=== PATIENT | female | born 1930 | race Caucasian/White ===

== ENCOUNTER → 2021-02-02 | Outpatient (CLI) | payer MEDICARE, BC ==
[~2021-02-02] MED LIST: ALLEGRA ALLERG180 MG PO; CHLORTHALIDONE25 MG PO; CLARITIN10 MG PO; DITROPAN 5 MG TA5 MG PO; HYZAAR 100-12.1 EACH PO; LASIX40 MG PO; LATANOPROST 0.7.5 ML EYEBOTH; MAGNESIUM400 MG PO; METOPROLOL SUCC25 MG PO; METOPROLOL SUCC50 MG PO; METRONIDAZOLE GEL TOP; METRONIDAZOLE70 GM TP; MULTAQ400 MG PO; NITROSTAT 0.40.4 MG SL; NORCO 5-325 TA1 EACH PO; NORVASC10 MG PO; OSTEO BI-FLEX1 EAC1 PO; PEPCID40 MG PO; TOPROL XL100 MG PO; TOPROL XL200 MG PO; TOPROL XL25 MG PO; VALSARTAN320 MG PO; VOLTAREN100 GM TP; XARELTO15 MG PO; ZOFRAN4 MG PO
== END ==
LOC: LAB 10:20
DX: E78.00 Pure hypercholesterolemia, unspecified (principal)
CPT/HCPCS: 36415; 80061; 80076

== ENCOUNTER → 2021-04-29 | Outpatient (CLI) | payer MEDICARE, BC | LOC: RAD 17:24 | DX: M54.5 Low back pain (principal); M25.551 Pain in right hip; M25.561 Pain in right knee; M40.56 Lordosis, unspecified, lumbar region; M48.061 Spinal stenosis, lumbar region without neurogenic claudication; M47.816 Spondylosis without myelopathy or radiculopathy, lumbar region; M16.11 Unilateral primary osteoarthritis, right hip; M17.11 Unilateral primary osteoarthritis, right knee; M25.461 Effusion, right knee | CPT/HCPCS: 72100; 73502; 73562 ==

== ENCOUNTER 2021-07-17 11:27 | Emergency (ER) | payer MEDICARE, BC ==
[2021-07-17 13:13] LABS: HEMOGLOBIN 11.6 gm/dl (12.3-15.3); RED BLOOD COUNT 3.91 M/UL (4.00-5.10); WHITE BLOOD COUNT 9.4 K/UL (4.5-11.0)
== END 2021-07-17 14:10 | disposition home or self-care (01) ==
LOC: ER1 11:27
PROVIDERS: Physician Assistant
DX: R04.0 Epistaxis (principal); I10 Essential (primary) hypertension; I48.91 Unspecified atrial fibrillation; Z79.01 Long term (current) use of anticoagulants; Z90.710 Acquired absence of both cervix and uterus; Z90.89 Acquired absence of other organs; Z88.8 Allergy status to other drugs, medicaments and biological substances
CPT/HCPCS: 85025; 99283; J1170

== ENCOUNTER → 2021-08-13 | Outpatient (CLI) | payer MEDICARE, BC | LOC: LAB 09:26 | DX: E78.00 Pure hypercholesterolemia, unspecified (principal) | CPT/HCPCS: 80061; 80076 ==

== ENCOUNTER → 2022-04-17 | Outpatient (CLI) | payer MEDICARE, BC ==
[2022-04-17 15:52] LABS: BUN/CREATININE RATIO 26 (0-10)
== END ==
LOC: LAB 15:12
PROVIDERS: Internal Medicine Interventional Cardiology
DX: N28.9 Disorder of kidney and ureter, unspecified (principal)
CPT/HCPCS: 80048

== ENCOUNTER 2022-04-18 07:32 | Emergency (ER) | payer MEDICARE, BC ==
[2022-04-18 09:08] LABS: HEMOGLOBIN 11.1 gm/dl (12.3-15.3); RED BLOOD COUNT 3.83 M/UL (4.00-5.10); WHITE BLOOD COUNT 10.1 K/UL (4.5-11.0)
[2022-04-18 09:31] LABS: BUN/CREATININE RATIO 28 (0-10)
== END 2022-04-18 10:25 | disposition home or self-care (01) ==
LOC: ER1 07:32
PROVIDERS: Emergency Medicine
DX: S76.012A Strain of muscle, fascia and tendon of left hip, initial encounter (principal); S50.01XA Contusion of right elbow, initial encounter; I11.9 Hypertensive heart disease without heart failure; Z96.652 Presence of left artificial knee joint; W06.XXXA Fall from bed, initial encounter
CPT/HCPCS: 73502; 80048; 84484; 85025; 93005; 99284

== ENCOUNTER → 2022-05-22 | Outpatient (CLI) | payer MEDICARE, BC ==
[2022-05-22 09:51] LABS: BUN/CREATININE RATIO 26 (0-10)
== END ==
LOC: LAB 09:05
PROVIDERS: Internal Medicine Interventional Cardiology
DX: E78.00 Pure hypercholesterolemia, unspecified (principal)
CPT/HCPCS: 80048; 80061; 80076